=== PATIENT | female | born 1975 | race Caucasian/White ===

== ENCOUNTER 2020-10-20 20:59 | Emergency (ER) | payer OTHER ==
[2020-10-21] MEDS ORDERED: CYCLOBENZAPRINE10 MG PO (00:27)
== END 2020-10-21 00:45 | disposition home or self-care (01) ==
LOC: ER1 20:59
DX: M25.511 Pain in right shoulder (principal); F17.210 Nicotine dependence, cigarettes, uncomplicated; Z85.41 Personal history of malignant neoplasm of cervix uteri; Z85.118 Personal history of other malignant neoplasm of bronchus and lung; Z88.0 Allergy status to penicillin; Z88.6 Allergy status to analgesic agent; Z88.5 Allergy status to narcotic agent
CPT/HCPCS: 73030; 99283